=== PATIENT | male | born 1995 | race Two or more races ===

== ENCOUNTER 2017-03-08 08:05 | Emergency (ER) | payer OTHER ==
[~2017-03-08] VITALS: Ht 175.3 cm; Wt 69.0 kg
[2017-03-08 08:06] VITALS: BP 115/69
== END 2017-03-08 09:21 | disposition home or self-care (01) ==
LOC: ED 09:15
DX: S60.512A Abrasion of left hand, initial encounter (principal); S60.511A Abrasion of right hand, initial encounter; L03.114 Cellulitis of left upper limb; L03.113 Cellulitis of right upper limb; X58.XXXA Exposure to other specified factors, initial encounter; Y93.89 Activity, other specified; Y92.89 Other specified places as the place of occurrence of the external cause; Y99.8 Other external cause status
CPT/HCPCS: 99283